=== PATIENT | female | born 1960 | race Caucasian/White ===

== ENCOUNTER 2019-12-07 12:51 | Outpatient (CLI) | payer OTHER, SELFPAY ==
--- NOTE | ~2019-12-07 | XR_ITS ---
EXAMINATION: XR abdomen/kub 1V EXAM DATE: 12/07/2019 13:11 INDICATION: Kidney stones. TECHNIQUE: Frontal projection(s) of the abdomen for interpretation. Comparison is made to prior exami nation from 02/16/2019. FINDINGS: There is expected amount of colonic stool and gas. No small bowel dilation, nonobstructiv e bowel gas pattern. Again there is identification of bilateral nephrolithiasis, larger stone burden on the left with 3 stones at least suspected, largest measuring about 8 mm in size. On the right the re is probably a single inferior calyceal stone which has more stellate shape. There are arterial ilene cifications, arteriosclerosis. There is no organomegaly suspected. There are mild bony degenerat rajan changes. IMPRESSION: Bilateral nephrolithiasis. Reviewed, dictated and finalized at location A. IMPRESSION: Bilateral nephrolithiasis.
== END 2019-12-07 12:52 | disposition home or self-care (01) ==
PROVIDERS: Visit Provider Urology
DX: N20.0 Calculus of kidney (principal)
CPT/HCPCS: 74018

== ENCOUNTER → 2020-08-21 02:29 | Outpatient (CLI) | payer OTHER, SELFPAY ==
[2020-08-21 22:46] LABS: SARS-CoV-2 RNA PCR Negative
== END ==
PROVIDERS: Visit Provider Urology
DX: Z01.812 Encounter for preprocedural laboratory examination (principal); Z20.822 Contact with and (suspected) exposure to COVID-19
CPT/HCPCS: C9803; U0003; U0005

== ENCOUNTER 2020-08-21 08:59 | Outpatient (CLI) | payer OTHER, SELFPAY ==
--- NOTE | 2020-08-21 09:15 | ECG_ITS ---
Measurements Intervals [place] Rate: 67 P: 69 OR: 164 QRS: -12 QRSD: 107 T: 23 QT: 413 QTc: 439 Interpretive Statements SINUS RHYTHM DELAYED PRECORDIAL R/S TRANSITION MINIMAL Q WAVES- HIGH LATERAL LEADS BASELINE ARTIFACT- I, II, III, AVR, AVL, AVF, V BORDERLINE ECG Electronically Signed On 08-21-2020 9:40:19 [facility] by Dave Booth D.O.
[2020-08-21 10:06] LABS: Hematocrit 37.5 % (37.0-47.0); Hemoglobin 11.5 g/dL (12.0-15.0)
[2020-08-21 10:15] LABS: Prothrombin Time 13.7 Seconds (11.1-14.7)
[2020-08-21 10:16] LABS: Partial Thromboplastin Time 24.3 SECONDS (22.3-36.8)
[2020-08-21 10:25] LABS: Anion Gap 4 mmol/L (8-16); Blood Urea Nitrogen 10 mg/dL (7-17); Calcium 9.6 mg/dL (8.4-10.2); Carbon Dioxide 29 mmol/L (22-30); Chloride 106 mmol/L (98-107); Estimated Glomerular Filt Rate > 60; Glucose 116 mg/dL (65-105); Potassium 3.9 mmol/L (3.4-5.0); Sodium 139 mmol/L (137-145)
== END 2020-08-21 09:00 | disposition home or self-care (01) ==
PROVIDERS: Anesthesiology; Visit Provider Urology
DX: D64.9 Anemia, unspecified (principal); I10 Essential (primary) hypertension; E11.9 Type 2 diabetes mellitus without complications; N20.0 Calculus of kidney; Z01.818 Encounter for other preprocedural examination
CPT/HCPCS: 36415; 80048; 85014; 85018; 85610; 85730; 87077; 87086; 87088; 87186; 93005

== ENCOUNTER 2020-08-24 01:37 | Day surgery (SDC) | payer OTHER, SELFPAY ==
[2020-08-16 10:53] VITALS: BMI 43.1
[2020-08-24] VITALS (7 sets, daily range): BP systolic 112–144; BP diastolic 58–82; PULSE 74–87; RESP 12–20; TEMP 36.4–36.7; O2SAT 97–100
--- NOTE | ~2020-08-24 | XR_ITS ---
EXAMINATION: XR abdomen/kub 1V INDICATION: Urolithiasis TECHNIQUE: Supine views of the abdomen were obtained on 2 radiographs. COMPARISON: 12/07/2019 FINDINGS: A left internal ureteral stent is in expected position. There is a 12 mm stone adjacent to the proximal stent. Stones measuring 8 mm and 7 mm are present in the upper pole of the left kidney. There is a 6 mm stone in the right kidney lower pole. Phleboliths are noted in the pelvis. There is c alcified atherosclerosis. The bowel gas pattern is normal. Punctate calcifications in the left upper quadrant likely reflect healed granulomatous disease of the spleen. IMPRESSION: 1. Left internal ureteral stent in expected position with full millimeters stone adjacent to the prox imal stent. 2. Bilateral nephrolithiasis. Reviewed, dictated and finalized at location A. E MAKER IMPRESSION: 1. Left internal ureteral stent in expected position with full millimeters ston e adjacent to the proximal stent. 2. Bilateral nephrolithiasis.
--- NOTE | 2020-08-24 08:19 | WPDHPUPDATE1 ---
History and Physical Update Update Date/Time: 08/24/20 08:19 History and Physical has been reviewed, including an updated exam of the patient. There are NO changes in the patient's condition. Risks, benefits, and alternatives have been discussed and questions answered. Patient agrees to proceed with procedure.
[2020-08-24] MEDS: LACTATED RINGERS 1,000 ML 30 ML IV CONT (10:28)
--- NOTE | 2020-08-24 10:28 | WPDANESEPPF ---
Anes - Initial Pre Proc Eval Procedure: Operation Date: 08/24/20 12:00 Proposed Procedures p Left Renal Extracorporeal Shock Wave Lithotripsy - Alvaro cShofield MD Date/Time: 08/24/20 10:28 Surgeon: Alvaro Schofield MD Pre Op Diagnosis: Kidney Stone Patient Data Age: 60 Gender: F Height: 5 ft 7 in Weight: 125 kg Allergies Allergy/AdvReac Type Severity Reaction Status Date / Time erythromycin base Allergy Mild Rash Verified 08/16/20 10:48 Home Medications Medication Instructions Recorded Confirmed Type ergocalciferol (vitamin D2) 1 unit PO MO 08/16/20 08/16/20 History folic acid 1 mg PO DAILY 08/16/20 08/16/20 History levothyroxine 1 mcg PO DAILY 08/16/20 08/16/20 History lisinopril 10 mg PO DAILY 08/16/20 08/16/20 History lovastatin 40 mg PO DAILY 08/16/20 08/16/20 History metformin 500 mg PO DAILY 08/16/20 08/16/20 History methotrexate sodium 15 mg PO DAILY 08/16/20 08/16/20 History prednisone 1 mg PO ONCE 08/16/20 08/16/20 History sulfasalazine [Azulfidine] 1 mg PO BID 08/16/20 08/16/20 History Patient hx anesthesia problems: none Family hx anesthesia problems: none PMFSH Past Medical History Medical History Diabetes Hyperlipidemia Hypertension Hypothyroid Rheumatoid arthritis Social History Social History Smoking packs per day: 1 Smoking cigarettes per day: 20.0 Years smoked: 30 Smoking pack-years: 30.00 Tobacco type: cigarettes Smoking end date: 08/16/14 Living arrangements: with family Gender identity (if verbalized by the patient): Female Spiritual care concerns: No Anes - Eval Final PreProcedure Day of Procedure 08/24/20 10:28 Patient weight: morbidly obese Heart: regular rate and rhythm Lungs: decreased breath sounds Airway: Mallampati scale class II Neurological: alert and oriented Last oral intake: >/= 8 hours ASA classification: III Emergent: no Anesthetic plan: proceed Anesthesia type and monitoring: general LMA and standard monitoring Informed Consent: The patient's anesthetic plan and its attendant risks and benefits were discussed with the patient/family/POA. Questions were solicited and answers provided to the satisfaction of the patient/family/POA.
[2020-08-24 10:41] LABS: Glucose Point of Care 109 (65-105)
[2020-08-24] MEDS: levoFLOXacin 500 MG/D5W 100 ML 500 MG/100 ML BAG 100 MG IVPB (11:19)
--- NOTE | 2020-08-24 11:37 | PM.PROC ---
Procedure Note - Detailed Date of procedure: 08/24/20 Pre-op diagnosis: Left ureteral stone Post-op diagnosis: same Procedure performed: Left ESWL Description of procedure: The patient was brought to the operative suite where she was placed in the supine position on the Dornier lithotripsy table. The focal point of the lithotripter was placed at a 7mm left proximal ureteral calculus. A total of 3000 shocks were delivered at a power setting of 4. There appeared to be good fragmentation of the stone. The patient tolerated the procedure well and was taken to the recovery room in good condition. Anesthesia: GLMA Surgeon: Alvaro Schofield MD Estimated blood loss (mL): 0 Drains: No Packing: No Pathology: none sent Complications: No immediate complications Condition: stable Disposition: PACU
[2020-08-24 12:28] LABS: Glucose Point of Care 79 (65-105)
== END 2020-08-24 13:48 | disposition home or self-care (01) ==
PROVIDERS: PCP Nurse Practitioner; Visit Provider Urology
PROC: (CPT 50590; principal; 2020-08-24 12:00)
DX: N20.1 Calculus of ureter (principal); I10 Essential (primary) hypertension; E11.9 Type 2 diabetes mellitus without complications; E78.5 Hyperlipidemia, unspecified; E03.9 Hypothyroidism, unspecified; M06.9 Rheumatoid arthritis, unspecified; Z79.84 Long term (current) use of oral hypoglycemic drugs; Z87.891 Personal history of nicotine dependence; E66.01 Morbid (severe) obesity due to excess calories; Z68.41 Body mass index [BMI] 40.0-44.9, adult
CPT/HCPCS: 50590; 36415; 74018; 80048; 82948; 85014; 85018; 85610; 85730; 87077; 87086; 87088; 87186; 93005; C9803; J1956; J2250; J2405; J2704; J3010; J7120; U0003; U0005

== ENCOUNTER 2020-09-10 10:58 | Outpatient (CLI) | payer OTHER, SELFPAY ==
--- NOTE | ~2020-09-10 | XR_ITS ---
XR abdomen/kub 1V 09/10/2020 11:24 Indication: Left renal stone follow-up Procedure: KUB Comparison: Comparison to multiple prior studies sequentially, with oldest reviewed study dated 12/06. Findings: Stable position to left internal ureteral stent. There are bilateral renal stones. There is stable appearance to location of proximal left ureteral/UPJ stone measuring 12 mm. Bowel gas pattern is nonobstructive. There are vascular calcifications in the pelvis. Impression: 1: No significant change to bilateral renal and left UPJ stones. Stable position to left internal ure teral stent. Reviewed, dictated and finalized at location B. Impression: 1: No significant change to bilateral renal and left UPJ stones. Stable positio n to left internal ureteral stent.
== END 2020-09-10 10:59 | disposition home or self-care (01) ==
LOC: ANHIMG 11:02
PROVIDERS: PCP Nurse Practitioner; Visit Provider Urology
DX: N20.0 Calculus of kidney (principal)
CPT/HCPCS: 74018

== ENCOUNTER → 2020-09-24 02:48 | Outpatient (CLI) | payer OTHER, SELFPAY ==
[2020-09-24 19:42] LABS: SARS-CoV-2 RNA PCR Negative
== END ==
PROVIDERS: PCP Nurse Practitioner; Visit Provider Urology
DX: Z01.812 Encounter for preprocedural laboratory examination (principal); Z20.822 Contact with and (suspected) exposure to COVID-19
CPT/HCPCS: C9803; U0003; U0005

== ENCOUNTER 2020-09-27 01:19 | Day surgery (SDC) | payer OTHER, SELFPAY ==
[2020-09-17 10:14] VITALS: BMI 42.1
[2020-09-27] VITALS (7 sets, daily range): BP systolic 124–163; BP diastolic 62–107; PULSE 72–86; RESP 12–20; TEMP 36.4–36.8; O2SAT 98–100
--- NOTE | ~2020-09-27 | XR_ITS ---
EXAMINATION: XR stent kub - surgery EXAM DATE: 09/27/2020 12:14 INDICATION: Left-sided stent placement. TECHNIQUE: Fluoroscopy used during XR stent kub - surgery performed by Dr. Alvaro Schofield MD. T otal fluoroscopic time of 84 seconds. The DAP for this procedure was 2168 radcm2. A total of 4 imag es obtained for the exam. FINDINGS: [place] image demonstrates a left double-J ureteral stent in position and calcific density p rojecting over the proximal aspect of the stent. Final image also demonstrates a left ureteral stent overlying expected position. Correlate with procedure note. IMPRESSION: Fluoroscopy used during XR stent kub - surgery. Reviewed, dictated and finalized at location A.
--- NOTE | 2020-09-27 06:55 | P.HP_ITS ---
History of Present Illness History of Present Illness Consent: Risks, benefits, and alternatives have been discussed and questions answered. Patient agrees to proceed with procedure. Chief complaint: Left Ureteral Stone Narrative: Yanira Hopper is a 60 year old female With a long history of recurring urolithiasis. Recently, we did left ESWL for a 7 mm ureteral calculus. Follow-up imaging showed no apparent fragmentation or passage of the stone leading to decision for an endoscopic approach today. Review of Systems Cardiovascular: Cardiovascular: Denies chest pain, Denies lightheadedness, Denies palpitations and Denies dyspnea Respiratory: Respiratory: Denies dyspnea Gastrointestinal: Gastrointestinal: Denies diarrhea, Denies nausea and Denies vomiting Genitourinary: Genitourinary: Denies hematuria and Denies dysuria Endocrine: Endocrine: Denies palpitations PMFSH Past Medical History Medical History Diabetes Hyperlipidemia Hypertension Hypothyroid Rheumatoid arthritis Social History Social History Smoking packs per day: 1 Smoking cigarettes per day: 20.0 Years smoked: 30 Smoking pack-years: 30.00 Smoking status: Former smoker Tobacco type: cigarettes Smoking end date: 08/16/14 Substance use: never Substance use type: does not use Living arrangements: with family Gender identity (if verbalized by the patient): Female Spiritual care concerns: No Meds Home Medications and Allergies Home Medications Medication Instructions Recorded Confirmed Type ergocalciferol (vitamin D2) 1 unit PO MO 08/16/20 09/17/20 History folic acid 1 mg PO DAILY 08/16/20 09/17/20 History levothyroxine 100 mcg PO DAILY 08/16/20 09/17/20 History lisinopril 10 mg PO DAILY 08/16/20 09/17/20 History lovastatin 40 mg PO DAILY 08/16/20 09/17/20 History metformin 500 mg PO DAILY 08/16/20 09/17/20 History methotrexate sodium 15 mg PO WEEKLY 08/16/20 09/17/20 History prednisone 5 mg PO DAILY 08/16/20 09/17/20 History sulfasalazine [Azulfidine] 500 mg PO BID 08/16/20 09/17/20 History Allergies Allergy/AdvReac Type Severity Reaction Status Date / Time erythromycin base Allergy Mild Rash Verified 09/17/20 10:11 Exam Const: General: no acute distress Resp: Effort & Inspection: normal respiratory effort GI: Inspection: non-distended GI Palp: No abdominal tenderness and No Guarding due to palpation present (GI) Auscultation: normal bowel sounds Assessment and Plan Assessment and plan (1) Left ureteral stone: Code(s): N20.1 - Calculus of ureter Status: Acute Assessment and Plan: * Cystoscopy, left ureteroscopy with laser lithotripsy, stone extraction and possible stent placement
--- NOTE | 2020-09-27 06:56 | WPDHPUPDATE1 ---
History and Physical Update Update Date/Time: 09/27/20 06:56 History and Physical has been reviewed, including an updated exam of the patient. There are NO changes in the patient's condition. Risks, benefits, and alternatives have been discussed and questions answered. Patient agrees to proceed with procedure.
[2020-09-27] MEDS: LACTATED RINGERS 1,000 ML 30 ML IV CONT (10:05)
[2020-09-27 10:09] LABS: Glucose Point of Care 84 (65-105)
--- NOTE | 2020-09-27 10:35 | WPDANESEPPF ---
Anes - Initial Pre Proc Eval Procedure: Operation Date: 09/27/20 11:30 Proposed Procedures p Cystoscopy, Left Ureteroscopy, Left Stone Extraction, Possible Left Stent Placement - Alvaro Schofield MD s Possible Holmium Laser Procedure - Alvaro Schofield MD Date/Time: 09/27/20 10:35 Surgeon: Alvaro Schofield MD Pre Op Diagnosis: Left Ureteral Stone Patient Data Age: 60 Gender: F Height: 5 ft 7 in Weight: 117.5 kg Last Vital Signs Temp 36.4 C L 09/27/20 10:08 Pulse 75 09/27/20 10:08 Resp 18 09/27/20 10:08 BP 138/75 09/27/20 10:08 Pulse Ox 98 09/27/20 10:08 Allergies Allergy/AdvReac Type Severity Reaction Status Date / Time erythromycin base Allergy Mild Rash Verified 09/27/20 09:37 Home Medications Medication Instructions Recorded Confirmed Type ergocalciferol (vitamin D2) 1 unit PO MO 08/16/20 09/17/20 History folic acid 1 mg PO DAILY 08/16/20 09/17/20 History levothyroxine 100 mcg PO DAILY 08/16/20 09/17/20 History lisinopril 10 mg PO DAILY 08/16/20 09/17/20 History lovastatin 40 mg PO DAILY 08/16/20 09/17/20 History metformin 500 mg PO DAILY 08/16/20 09/17/20 History methotrexate sodium 15 mg PO WEEKLY 08/16/20 09/17/20 History prednisone 5 mg PO DAILY 08/16/20 09/17/20 History sulfasalazine [Azulfidine] 500 mg PO BID 08/16/20 09/17/20 History Laboratory Tests 09/27/20 10:06 POC Capillary Glucose 84 mg/dl mg/dl (65-105) Patient hx anesthesia problems: none Family hx anesthesia problems: none PMFSH Past Medical History Medical History Diabetes Hyperlipidemia Hypertension Hypothyroid Rheumatoid arthritis Social History Social History Smoking packs per day: 1 Smoking cigarettes per day: 20.0 Years smoked: 30 Smoking pack-years: 30.00 Smoking status: Former smoker Tobacco type: cigarettes Smoking end date: 08/16/14 Substance use: never Substance use type: does not use Living arrangements: with family Gender identity (if verbalized by the patient): Female Spiritual care concerns: No Anes - Eval Final PreProcedure Day of Procedure 09/27/20 10:35 Patient weight: morbidly obese Heart: regular rate and rhythm Lungs: clear to auscultation Airway: Mallampati scale class II Neurological: alert and oriented Last oral intake: >/= 8 hours ASA classification: III Emergent: no Anesthetic plan: proceed Anesthesia type and monitoring: general LMA and standard monitoring Informed Consent: The patient's anesthetic plan and its attendant risks and benefits were discussed with the patient/family/POA. Questions were solicited and answers provided to the satisfaction of the patient/family/POA.
[2020-09-27] MEDS: LIDOCAINE HCL 2% GEL UROJET 10 ML PKG MUCOUS MEM (11:30)
[2020-09-27] MEDS: KETOROLAC 30 MG/ML VIAL (*BKC) IV PUSH (12:08)
--- NOTE | 2020-09-27 13:07 | PM.PROC ---
Procedure Note - Detailed Date of procedure: 09/27/20 Pre-op diagnosis: Left Ureteral Stone Post-op diagnosis: same Procedure performed: 1. Cystoscopy with left stent removal 2. Left ureteroscopy, laser lithotripsy and stone extraction 3. Left ureteral stent replacement Description of procedure: patient brought to the options we are she is prepped and draped in routine sterile fashion while in a dorsal lithotomy position. 2% xylocaine jelly was introduced ensure the and general anesthetic was administered per the anesthesia department. Cystoscopy was undertaken with a 21 F rigid cystoscope. Tip of the indwelling stent is grasped but it is brought to the external urethral meatus. A 0.035 in glide wires and is advanced in the left renal pelvis. A ureter was dilated with an 8 F/10 F dilator and a 12/14 F access sheath is placed. Ureteroscopy is undertaken with a 7.5 F flexible ureteral scope. Using a 320 5 micron holmium laser fiber the 7 mm left proximal ureteral stone is fractured into multiple small pieces. The larger pieces were extracted. There is 1 time a tiny piece that migrates into of medially located upper pole calyx which I cannot completely excess. This piece likely should be small enough to pass spontaneously. 4.8 F variable length stent was replaced with the proximal coil in renal pelvis and distal coil in the bladder. Scope and wires were removed and she was taken to the recovery room in good condition. Anesthesia: GLMA Surgeon: Alvaro Schofield MD Estimated blood loss (mL): 5 Drains: Yes ( 4.8 F left ureteral stent) Packing: No Pathology: yes ( left ureteral stone) Complications: No immediate complications Condition: stable Disposition: PACU
[2020-09-27 13:19] LABS: Glucose Point of Care 74 (65-105)
== END 2020-09-27 13:43 | disposition home or self-care (01) ==
PROVIDERS: PCP Nurse Practitioner; Visit Provider Urology
PROC: (CPT 52352; principal; 2020-09-27 11:30)
PROC: (CPT 52356; 2020-09-27 11:30)
DX: N20.1 Calculus of ureter (principal); E11.9 Type 2 diabetes mellitus without complications; E78.5 Hyperlipidemia, unspecified; I10 Essential (primary) hypertension; E03.9 Hypothyroidism, unspecified; M06.9 Rheumatoid arthritis, unspecified; Z79.84 Long term (current) use of oral hypoglycemic drugs; Z87.891 Personal history of nicotine dependence; E66.01 Morbid (severe) obesity due to excess calories; Z68.41 Body mass index [BMI] 40.0-44.9, adult
CPT/HCPCS: 52356; 82365; 82948; 88300; A9270; C1769; C1894; C2617; C9803; J1100; J1885; J2250; J2405; J2704; J7120; Q9966; U0003; U0005

== ENCOUNTER 2022-08-15 10:31 | Outpatient (CLI) | payer OTHER, SELFPAY ==
--- NOTE | 2022-08-15 10:43 | ECG_ITS ---
Measurements Intervals [place] Rate: 79 P: 61 TX: 152 QRS: -22 QRSD: 98 T: 22 QT: 406 QTc: 466 Interpretive Statements SINUS RHYTHM LOW QRS VOLTAGE IN PRECORDIAL LEADS ANTEROLATERAL INFARCT, AGE INDETERMINATE BASELINE ARTIFACT- I, II, III, AVR, AVL, AVF, V1-V6 ABNORMAL ECG COMPARED TO ECG 08/21/2020 09:59:37 MYOCARDIAL INFARCT NOW PRESENT Electronically Signed On 08-15-2022 11:15:11 [employer] by Dave Booth D.O.
[2022-08-15 12:13] LABS: Prothrombin Time 12.8 Seconds (11.1-14.7)
[2022-08-15 12:14] LABS: Partial Thromboplastin Time 23.5 SECONDS (22.3-36.8)
[2022-08-15 12:15] LABS: Anion Gap 6 mmol/L (8-16); Blood Urea Nitrogen 17 mg/dL (7-17); Calcium 9.2 mg/dL (8.4-10.2); Carbon Dioxide 27 mmol/L (22-30); Chloride 106 mmol/L (98-107); Estimated Glomerular Filt Rate > 60; Glucose 99 mg/dL (65-110); Potassium 4.2 mmol/L (3.4-5.0); Sodium 139 mmol/L (137-145)
== END 2022-08-15 10:32 | disposition home or self-care (01) ==
PROVIDERS: Anesthesiology; PCP Nurse Practitioner; Visit Provider Urology
DX: N20.0 Calculus of kidney (principal); E11.9 Type 2 diabetes mellitus without complications; Z01.818 Encounter for other preprocedural examination; R94.31 Abnormal electrocardiogram [ECG] [EKG]
CPT/HCPCS: 36415; 80048; 85610; 85730; 87077; 87086; 87186; 93005

== ENCOUNTER 2022-08-29 11:28 | Outpatient (CLI) | payer OTHER, SELFPAY ==
[2022-08-29 12:15] LABS: Prothrombin Time 13.1 Seconds (11.1-14.7)
== END 2022-08-29 11:29 | disposition home or self-care (01) ==
PROVIDERS: PCP Nurse Practitioner; Visit Provider Urology
DX: N20.0 Calculus of kidney (principal); Z01.818 Encounter for other preprocedural examination
CPT/HCPCS: 36415; 85610; 85730; 87086

== ENCOUNTER 2022-10-24 11:24 | Outpatient (CLI) | payer BC, SELFPAY ==
[2022-10-24 12:01] LABS: Prothrombin Time 13.7 Seconds (11.1-14.7)
[2022-10-24 12:02] LABS: Anion Gap 7 mmol/L (8-16); Blood Urea Nitrogen 16 mg/dL (7-17); Calcium 9.1 mg/dL (8.4-10.2); Carbon Dioxide 29 mmol/L (22-30); Chloride 104 mmol/L (98-107); Estimated Glomerular Filt Rate > 60; Glucose 155 mg/dL (65-110); Sodium 140 mmol/L (137-145)
== END 2022-10-24 11:25 | disposition home or self-care (01) ==
PROVIDERS: Anesthesiology; PCP Nurse Practitioner; Visit Provider Urology
DX: N20.0 Calculus of kidney (principal); E11.9 Type 2 diabetes mellitus without complications; Z01.818 Encounter for other preprocedural examination
CPT/HCPCS: 36415; 80048; 85610; 85730; 87086; 87147; 87181; 87186

== ENCOUNTER 2022-10-31 01:54 | Day surgery (SDC) | payer BC, SELFPAY ==
[2022-08-12 14:06] VITALS: BMI 43.7
--- NOTE | 2022-08-12 14:11 | PC.NURSE ---
Report to the Outpatient Waiting Room, entrance under the green pavilion located off [facility], at time 6:00 on date 08/22/22. Planned Procedure Time: 7:30. Time changes happen often and if your time is changed the preop area will call you the afternoon before. - You and your visitor will be asked to self-screen and do not enter if you have any COVID symptoms. - Only one visitor is requested with a max of two and NO children visitors are allowed at this time. - The patient visitor may be requested to leave or wait in car when not with patient due to distancing restrictions. - A mask is optional within the hospital at this time. Patients may have clear liquids (water, carbonated beverages, clear teas, apple juice) until 3 hours prior to surgery with a maximum of 20 ounces. - No food from midnight until time of surgery Take the following medications with a SIP of water the morning of surgery: LEVOTHYROXINE, PREDNISONE DO NOT STOP ANY OF YOUR OTHER PRESCRIPTION MEDICATIONS PRIOR TO SURGERY?EXCEPT THE FOLLOWING Medications to discontinue per physician: VITAMINS/SUPPLEMENTS Date to take last dose: 08/18/[address] MORALES REGARDING SULFASALAZINE Please no make-up, nail cuban, hairspray, perfume, deodorant, or body powder the day of surgery. No jewelry (including any body piercings) or valuables the day of surgery, leave them at home. Please take a shower or bath the night before, or the morning of, surgery with an antibacterial soap. Wear comfortable, loose fitting clothing. - Jewelry must be removed prior to entering the operating room. Rings and piercings that are not removed may be cut off. - The hospital will not accept responsibility for valuables. - Please leave all valuables, including medications, at home the day of surgery. If you are going home after surgery, a licensed driver salesman must drive you home. - NO public transportation without another adult if you receive anesthesia. - We recommend that an adult stay with you for 24 hours following discharge. - We also recommend that you do not drive, make important decision, drink alcoholic beverages, or take any drugs that were not prescribed by your health care provider for at least 24 hours after your discharge time. Follow any additional instructions given to you from your surgeon. If you or anyone in your household have experienced Covid symptoms in the past week, please notify your surgeon or the nurse liaison at the phone number below for possible testing. Telephone instructions given to KARINA MESA and asked if any additional questions and then verbalized understanding. Patient advised to call surgeon office or pre surgery nurse liaison [phone] if any additional questions.
--- NOTE | 2022-08-22 10:16 | PC.NURSE ---
Pt states she is having a stress test done on 08/27/[address] Valencia ([facility]) in [place]. No other changes in health history since initial interview. Medications updated. New pre-op instructions reviewed with pt. Pt denies further questions at this time.
--- NOTE | 2022-08-22 10:19 | PC.NURSE ---
Report to the Outpatient Waiting Room, entrance under the green pavilion located off [facility], at time 7:30 on date 09/05/22. Planned Procedure Time: 9:30. Time changes happen often and if your time is changed the preop area will call you the afternoon before. - You and your visitor will be asked to self-screen and do not enter if you have any COVID symptoms. - Only one visitor is requested with a max of two and NO children visitors are allowed at this time. - The patient visitor may be requested to leave or wait in car when not with patient due to distancing restrictions. - A mask is optional within the hospital at this time. Patients may have clear liquids (water, carbonated beverages, clear teas, apple juice) until 3 hours prior to surgery (6:30) with a maximum of 20 ounces. - No food from midnight until time of surgery Take the following medications with a SIP of water the morning of surgery: LEVOTHYROXINE, PREDNISONE DO NOT STOP ANY OF YOUR OTHER PRESCRIPTION MEDICATIONS PRIOR TO SURGERY?EXCEPT THE FOLLOWING Medications to discontinue per physician: VITAMINS/SUPPLEMENTS Date to take last dose: 09/01/[address] MORALES REGARDING SULFASALAZINE Please no make-up, nail setswana, hairspray, perfume, deodorant, or body powder the day of surgery. No jewelry (including any body piercings) or valuables the day of surgery, leave them at home. Please take a shower or bath the night before, or the morning of, surgery with an antibacterial soap. Wear comfortable, loose fitting clothing. - Jewelry must be removed prior to entering the operating room. Rings and piercings that are not removed may be cut off. - The hospital will not accept responsibility for valuables. - Please leave all valuables, including medications, at home the day of surgery. If you are going home after surgery, a licensed tractor trailer moving van driver must drive you home. - NO public transportation without another adult if you receive anesthesia. - We recommend that an adult stay with you for 24 hours following discharge. - We also recommend that you do not drive, make important decision, drink alcoholic beverages, or take any drugs that were not prescribed by your health care provider for at least 24 hours after your discharge time. Follow any additional instructions given to you from your surgeon. If you or anyone in your household have experienced Covid symptoms in the past week, please notify your surgeon or the nurse liaison at the phone number below for possible testing. Telephone instructions given to KARINA MESA and asked if any additional questions and then verbalized understanding. Patient advised to call surgeon office or pre surgery nurse liaison [phone] if any additional questions.
--- NOTE | 2022-08-28 14:38 | P.HP_ITS ---
History of Present Illness History of Present Illness Consent: Risks, benefits, and alternatives have been discussed and questions answered. Patient agrees to proceed with procedure. Chief complaint: Right Kidney Stone Narrative: Yanira Hopper is a 62 year old female With a history of urolithiasis in the past having undergone several prior lithotripsies. She is known to have a 7 mm stone in the right kidney. We had plans for lithotripsy a couple weeks ago but had to cancel because of a positive urinary culture. She now presents for right ESWL. She is aware the risk including perinephric hematoma hematuria and need for additional procedures. Review of Systems Cardiovascular: Cardiovascular: Denies chest pain, Denies lightheadedness, Denies palpitations and Denies dyspnea Respiratory: Respiratory: Denies dyspnea Gastrointestinal: Gastrointestinal: Denies diarrhea, Denies nausea and Denies vomiting Genitourinary: Genitourinary: Denies hematuria and Denies dysuria Endocrine: Endocrine: Denies palpitations PMFSH Past Medical History Medical History Diabetes Hyperlipidemia Hypertension Hypothyroid Rheumatoid arthritis Social History Social History Smoking packs per day: 1 Smoking cigarettes per day: 20.0 Years smoked: 30 Smoking pack-years: 30.00 Smoking status: Former smoker Tobacco type: cigarettes Smoking end date: 06/15/12 Alcohol intake: never Substance use: never Substance use type: does not use Living arrangements: with family Gender identity (if verbalized by the patient): Female Spiritual care concerns: No Meds Home Medications and Allergies Home Medications Medication Instructions Recorded Confirmed Type ergocalciferol (vitamin D2) 1,250 1 unit PO MO 08/16/20 08/22/22 History mcg (50,000 unit) capsule folic acid 1 mg tablet 1 mg PO DAILY 08/16/20 08/22/22 History levothyroxine 100 mcg tablet 100 mcg PO DAILY 08/16/20 08/22/22 History lisinopril 10 mg tablet 10 mg PO DAILY 08/16/20 08/22/22 History metformin 500 mg tablet,extended 500 mg PO DAILY 08/16/20 08/22/22 History release 24 hr prednisone 5 mg tablet 5 mg PO DAILY 08/16/20 08/22/22 History sulfasalazine 500 mg tablet 500 mg PO BID 08/16/20 08/22/22 History (Azulfidine) alendronate 70 mg tablet 70 mg PO WEEKLY 08/12/22 08/22/22 History atorvastatin 80 mg tablet 80 mg PO HS 08/12/22 08/22/22 History methotrexate sodium 25 mg/mL 25 mg subcut WEEKLY 08/12/22 08/22/22 History injection solution levofloxacin 500 mg tablet 500 mg PO DAILY 08/22/22 08/22/22 History Allergies Allergy/AdvReac Type Severity Reaction Status Date / Time erythromycin base Allergy Mild Rash Verified 08/22/22 10:16 Exam Const: General: no acute distress Resp: Effort & Inspection: normal respiratory effort GI: Inspection: non-distended GI Palp: No abdominal tenderness and No Guarding due to palpation present (GI) Auscultation: normal bowel sounds Assessment and Plan Assessment and plan (1) Right renal stone: Code(s): N20.0 - Calculus of kidney Status: Acute Plan * Right ESWL
--- NOTE | 2022-09-05 06:32 | WPDHPUPDATE1 ---
History and Physical Update Update Date/Time: 09/05/22 06:32 History and Physical has been reviewed, including an updated exam of the patient. There are NO changes in the patient's condition. Risks, benefits, and alternatives have been discussed and questions answered. Patient agrees to proceed with procedure.
[2022-10-21 10:35] VITALS: BMI 43.7
--- NOTE | 2022-10-21 10:36 | PC.NURSE ---
Report to the Outpatient Waiting Room, entrance under the green pavilion located off [facility], at time 7:30 on date 10/31/22. Planned Procedure Time: 9:30. Time changes happen often and if your time is changed the preop area will call you the afternoon before. - You and your visitor will be asked to self-screen and do not enter if you have any COVID symptoms. - A mask is optional within the hospital at this time. Patients may have clear liquids (water, carbonated beverages, clear teas, apple juice) until 3 hours prior to surgery (6:30) with a maximum of 20 ounces. - No food from midnight until time of surgery Take the following medications with a SIP of water the morning of surgery: LEVOTHYROXINE, PREDNISONE, METOPROLOL DO NOT STOP ANY OF YOUR OTHER PRESCRIPTION MEDICATIONS PRIOR TO SURGERY EXCEPT THE FOLLOWING Medications to discontinue per physician: VITAMINS/SUPPLEMENTS Date to take last dose: 10/27/22 Please no make-up, nail syriac, hairspray, perfume, deodorant, or body powder the day of surgery. No jewelry (including any body piercings) or valuables the day of surgery, leave them at home. Please take a shower or bath the night before, or the morning of, surgery with an antibacterial soap. Wear comfortable, loose fitting clothing. - Jewelry must be removed prior to entering the operating room. Rings and piercings that are not removed may be cut off. - The hospital will not accept responsibility for valuables. - Please leave all valuables, including medications, at home the day of surgery. If you are going home after surgery, a licensed batch mixing truck driver must drive you home. - NO public transportation without another adult if you receive anesthesia. - We recommend that an adult stay with you for 24 hours following discharge. - We also recommend that you do not drive, make important decision, drink alcoholic beverages, or take any drugs that were not prescribed by your health care provider for at least 24 hours after your discharge time. Follow any additional instructions given to you from your surgeon. If you or anyone in your household have experienced Covid symptoms in the past week, please notify your surgeon or the nurse liaison at the phone number below for possible testing. Telephone instructions given to PT - SRIRAM MESA and asked if any additional questions and then verbalized understanding. Patient advised to call surgeon office or pre surgery nurse liaison [phone] if any additional questions.
--- NOTE | 2022-10-27 18:42 | P.HP_ITS ---
History of Present Illness History of Present Illness Consent: Risks, benefits, and alternatives have been discussed and questions answered. Patient agrees to proceed with procedure. Chief complaint: Right Kidney Stone Narrative: Yanira Hopper is a 62 year old female ? With a history of urolithiasis in the past having undergone several prior lithotripsies.? She is known to have a 7 mm stone in the right kidney.? We had plans for lithotripsy a several weeks ago but had to cancel because of a positive urinary culture.? She now presents for right ESWL.? She is aware the risk including perinephric hematoma hematuria and need for additional procedures. Review of Systems Review of Systems: All systems reviewed & are unremarkable except as noted in HPI and below PMFSH Past Medical History Medical History Diabetes Hyperlipidemia Hypertension Hypothyroid Rheumatoid arthritis Social History Social History Smoking packs per day: 1 Smoking cigarettes per day: 20.0 Years smoked: 30 Smoking pack-years: 30.00 Smoking status: Former smoker Tobacco type: cigarettes Smoking end date: 06/15/12 Alcohol intake: never Substance use: never Substance use type: does not use Living arrangements: with family Gender identity (if verbalized by the patient): Female Spiritual care concerns: No Meds Home Medications and Allergies Home Medications Medication Instructions Recorded Confirmed Type ergocalciferol (vitamin D2) 1,250 1 unit PO WEEKLY 08/16/20 10/21/22 History mcg (50,000 unit) capsule folic acid 1 mg tablet 1 mg PO DAILY 08/16/20 10/21/22 History levothyroxine 100 mcg tablet 100 mcg PO DAILY 08/16/20 10/21/22 History lisinopril 10 mg tablet 10 mg PO DAILY 08/16/20 10/21/22 History metformin 500 mg tablet,extended 500 mg PO DAILY 08/16/20 10/21/22 History release 24 hr prednisone 5 mg tablet 5 mg PO DAILY 08/16/20 10/21/22 History sulfasalazine 500 mg tablet 500 mg PO BID 08/16/20 10/21/22 History (Azulfidine) alendronate 70 mg tablet 70 mg PO WEEKLY 08/12/22 10/21/22 History atorvastatin 80 mg tablet 80 mg PO HS 08/12/22 10/21/22 History methotrexate sodium 25 mg/mL 25 mg subcut WEEKLY 08/12/22 10/21/22 History injection solution metoprolol succinate 50 mg 50 mg PO DAILY 10/21/22 10/21/22 History tablet,extended release 24 hr Allergies Allergy/AdvReac Type Severity Reaction Status Date / Time erythromycin base Allergy Mild Rash Verified 10/21/22 10:32 Exam Const: General: no acute distress Resp: Effort & Inspection: normal respiratory effort GI: Inspection: non-distended GI Palp: No abdominal tenderness and No Guarding due to palpation present (GI) Auscultation: normal bowel sounds Assessment and Plan Assessment and plan (1) Right renal stone: Code(s): N20.0 - Calculus of kidney Status: Acute Assessment and Plan: * right ESWL
--- NOTE | 2022-10-30 09:34 | P.PNAN_ITS ---
Anes - Initial Pre Proc Eval Procedure: Operation Date: 10/31/22 09:30 Proposed Procedures p Right Extracorporeal Shock Wave Lithotripsy - Alvaro Schofield MD Date/Time: 10/30/22 09:34 Surgeon: Alvaro Schofield MD Pre Op Diagnosis: Right Kidney Stone Patient Data Age: 62 Gender: F Height: 1.7 m Weight: 126.55 kg Allergies Allergy/AdvReac Type Severity Reaction Status Date / Time erythromycin base Allergy Mild Rash Verified 10/31/22 08:03 Home Medications Medication Instructions Recorded Confirmed Type ergocalciferol (vitamin D2) 1,250 1 unit PO WEEKLY 08/16/20 10/31/22 History mcg (50,000 unit) capsule folic acid 1 mg tablet 1 mg PO DAILY 08/16/20 10/31/22 History levothyroxine 100 mcg tablet 100 mcg PO DAILY 08/16/20 10/31/22 History lisinopril 10 mg tablet 10 mg PO DAILY 08/16/20 10/31/22 History metformin 500 mg tablet,extended 500 mg PO DAILY 08/16/20 10/31/22 History release 24 hr prednisone 5 mg tablet 5 mg PO DAILY 08/16/20 10/31/22 History sulfasalazine 500 mg tablet 500 mg PO BID 08/16/20 10/31/22 History (Azulfidine) alendronate 70 mg tablet 70 mg PO WEEKLY 08/12/22 10/21/22 History atorvastatin 80 mg tablet 80 mg PO HS 08/12/22 10/31/22 History methotrexate sodium 25 mg/mL 25 mg subcut WEEKLY 08/12/22 10/21/22 History injection solution metoprolol succinate 50 mg 50 mg PO DAILY 10/21/22 10/31/22 History tablet,extended release 24 hr Patient hx anesthesia problems: none Family hx anesthesia problems: none Results Review: All pre-operative results and documents have been reviewed as part of the pre- operative evaluation. [facility]LY [facility] Past Medical History Medical History (Updated 10/30/22 @ 09:35 by Jay Fulton DO) Diabetes Hyperlipidemia Hypertension Hypothyroid ZAHIDA (obstructive sleep apnea) Rheumatoid arthritis Social History Social History Smoking packs per day: 1 Smoking cigarettes per day: 20.0 Years smoked: 30 Smoking pack-years: 30.00 Smoking status: Former smoker Tobacco type: cigarettes Smoking end date: 06/15/12 Alcohol intake: never Substance use: never Substance use type: does not use Living arrangements: with family Gender identity (if verbalized by the patient): Female Spiritual care concerns: No Anes - Eval Final PreProcedure Day of Procedure 10/30/22 09:34 Patient weight: morbidly obese Heart: regular rate and rhythm Lungs: clear to auscultation Airway: Mallampati scale class III Neurological: alert and oriented Last oral intake: >/= 8 hours ASA classification: III Emergent: no Anesthetic plan: proceed Anesthesia type and monitoring: general LMA and standard monitoring Results Review: All pre-operative results and documents have been reviewed as part of the pre- operative evaluation. Informed Consent: The patient's anesthetic plan and its attendant risks and benefits were discussed with the patient/family/POA. Questions were solicited and answers provided to the satisfaction of the patient/family/POA.
[2022-10-31] VITALS (8 sets, daily range): BP systolic 133–158; BP diastolic 61–88; PULSE 68–87; RESP 14–22; TEMP 36–36.1; O2SAT 95–100
--- NOTE | ~2022-10-31 | XR_ITS ---
Supine and upright views of the abdomen Clinical history: Lithotripsy COMPARISON: 09/10/2020 Findings: Bowel gas pattern is nonspecific. No evidence for obstruction or free air. Right lower pole renal stones are present, largest measuring 8 mm. No definite left renal stone. Osseous structures a re intact. Impression: Right nephrolithiasis, as above. Reviewed, dictated and finalized at [facility]. Impression: Right nephrolithiasis, as above.
--- NOTE | 2022-10-31 06:51 | WPDHPUPDATE1 ---
History and Physical Update Update Date/Time: 10/31/22 06:51 History and Physical has been reviewed, including an updated exam of the patient. There are NO changes in the patient's condition. Risks, benefits, and alternatives have been discussed and questions answered. Patient agrees to proceed with procedure.
[2022-10-31] MEDS: LACTATED RINGERS 1,000 ML 30 ML IV CONT (08:29)
[2022-10-31 08:30] LABS: Glucose Point of Care 132 mg/dl (65-105)
[2022-10-31] MEDS: ceFAZolin 3 GM/D5W 100 ML 100 ML IVPB (10:14)
--- NOTE | 2022-10-31 10:30 | W.PM.PROC2 ---
Procedure Note - Detailed Date of Procedure 10/31/22 Pre-op Diagnosis Right Kidney Stone Post-op Diagnosis Other Procedure Performed Right ESWL Surgeon Alvaro Schofield MD Anesthesia General Description of Procedure The patient was brought to the operative suite where she was placed in the supine position on the Dornier lithotripsy table. The focal point of the lithotripter was placed at a 5-6mm right lower calyceal calculus. A total of 2500 shocks were delivered at a power setting of 4. There appeared to be good fragmentation of the stone. The patient tolerated the procedure well and was taken to the recovery room in good condition. Urine Output 0 Drains No Packing No Pathology None sent Condition Stable
== END 2022-10-31 12:40 | disposition home or self-care (01) ==
PROVIDERS: PCP Nurse Practitioner; Visit Provider Urology
PROC: (CPT 50590; principal; 2022-10-31 09:30)
DX: N20.0 Calculus of kidney (principal); E11.9 Type 2 diabetes mellitus without complications; E78.5 Hyperlipidemia, unspecified; I10 Essential (primary) hypertension; E03.9 Hypothyroidism, unspecified; M06.9 Rheumatoid arthritis, unspecified; Z87.891 Personal history of nicotine dependence
CPT/HCPCS: 50590; 74018; 82948; J0690; J1100; J2250; J2405; J2704; J3010; J7120

== ENCOUNTER 2022-11-05 13:16 | Outpatient (CLI) | payer BC, SELFPAY ==
--- NOTE | ~2022-11-05 | XR_ITS ---
Supine and upright views of the abdomen Clinical history: Renal stone COMPARISON: 10/31/2022 Findings: Bowel gas pattern is nonspecific. No evidence for obstruction or free air. Stable right nep hrolithiasis noted. Osseous structures are intact. Impression: Stable right nephrolithiasis. Reviewed, dictated and finalized at [facility]. Impression: Stable right nephrolithiasis.
== END 2022-11-05 13:17 | disposition home or self-care (01) ==
PROVIDERS: PCP Nurse Practitioner; Visit Provider Urology
DX: N20.0 Calculus of kidney (principal)
CPT/HCPCS: 74018

== ENCOUNTER 2024-05-23 12:27 | Outpatient (CLI) | payer MEDICARE, SELFPAY ==
--- NOTE | ~2024-05-23 | XR_ITS ---
XR abdomen/kub 1V Ordering provider: Alvaro Schofield MD History: . history of kidney stones . Comparison: November 05, 2022 FINDINGS: BOWEL: Nonobstructive bowel gas pattern. ORGANOMEGALY: None. SIGNIFICANT PATHOLOGIC CALCIFICATIONS: Bilateral kidney stones are noted. OTHER: No free air is seen under the diaphragm. Degenerative the spine. Bilateral hip severe osteoart hritic changes. Pubic symphysitis. IMPRESSION: NO ACUTE ABDOMINAL FINDINGS. Bilateral kidney stones. Reviewed, dictated and finalized at location [facility]. [facility]
== END 2024-05-23 12:28 | disposition home or self-care (01) ==
LOC: ANHIMG 12:39
PROVIDERS: PCP Nurse Practitioner; Visit Provider Urology
DX: N20.0 Calculus of kidney (principal)
CPT/HCPCS: 74018